=== PATIENT | female | born 1945 | race Caucasian/White ===

== ENCOUNTER 2018-01-13 15:04 | Emergency (ER) | payer OTHER ==
[~2018-01-13] VITALS: Ht 160 cm; Wt 78.7 kg
[~2018-01-13 15:04] MED LIST: CALCIUM 500 W/V1 TAB PO; CLINDAMYCIN HC300 MG PO; CODEINE PO; FLUOXETINE10 M3 PO; FLUOXETINE40 MG PO; LAC PO; LEVAQUIN750 MG PO; LEVOTHYROXIN0.075 M2 PO; OMEPRAZOLE DR20 M1 PO; PREDNISONE20 MG PO; PREDNISONE5 MG PO; PULMICORT180 MCG/Ac INH; SIMVASTATIN20 M1 PO; SYNTHROID0.075 MG PO; TESSALON PERLE100 MG PO; VENTOLIN H0.09 MG/A1 IH; ZITHROMAX Z-PA250 MG PO; ZOCOR20 MG PO; [UNRECOGNIZED DRUG - OTHER] PO; [UNRECOGNIZED DRUG - OTHER] PO
[2018-01-13 15:08] VITALS: Ht 160 cm; Wt 78.7 kg
[2018-01-13 16:14] VITALS: BP 140/71
== END 2018-01-13 16:14 | disposition home or self-care (01) ==
LOC: ED 15:04
DX: S50.12XA Contusion of left forearm, initial encounter (principal); S50.11XA Contusion of right forearm, initial encounter; I10 Essential (primary) hypertension; E78.00 Pure hypercholesterolemia, unspecified; E07.9 Disorder of thyroid, unspecified; M79.644 Pain in right finger(s); W22.8XXA Striking against or struck by other objects, initial encounter; Y93.89 Activity, other specified; Y92.89 Other specified places as the place of occurrence of the external cause; Y99.8 Other external cause status

== ENCOUNTER → 2018-02-03 | Outpatient (CLI) | payer OTHER ==
[2018-02-03 13:10] LABS: BASOPHIL % 0.4 % (0-2); PLATELET COUNT 285 x10^3mcL (130-400)
[2018-02-03 13:11] LABS: RED CELL DISTRIBUTION WIDTH 15.5 % (11.5-14.5)
[2018-02-03 13:13] LABS: CALCIUM 8.6 mg/dL (8.5-10.1); CHLORIDE SERUM 105 mmol/L (98-107); CREATININE SERUM 0.7 mg/dL (0.6-1.0); GLUCOSE SERUM 107 mg/dL (74-106); POTASSIUM SERUM 3.8 mmol/L (3.5-5.1); SODIUM SERUM 142 mmol/L (136-145)
[2018-02-03 13:18] LABS: ALBUMIN 3.6 g/dL (3.4-5.0); ALKALINE PHOSPHATASE 90 U/L (46-116); ALT/SGPT 44 U/L (14-59); AST/SGOT 31 U/L (15-37); BILIRUBIN TOTAL 0.49 mg/dL (0.20-1.00); TOTAL PROTEIN, SERUM 7.2 g/dL (6.4-8.2)
== END | disposition home or self-care (01) ==
LOC: LB 11:45
PROVIDERS: Radiology Diagnostic Radiology
DX: Z01.818 Encounter for other preprocedural examination (principal); K44.9 Diaphragmatic hernia without obstruction or gangrene

== ENCOUNTER 2018-04-30 20:18 | Inpatient (IN) | payer OTHER ==
[~2018-04-30] VITALS: Ht 160 cm; Wt 72.1 kg
[2018-04-30 21:37] LABS: PLATELET COUNT 259 x10^3mcL (130-400); RED CELL DISTRIBUTION WIDTH 14.1 % (11.5-14.5)
[2018-04-30 21:39] LABS: CALCIUM 9.2 mg/dL (8.5-10.1); CARBON DIOXIDE 27.6 mmol/L (21-32); CHLORIDE SERUM 103 mmol/L (98-107); CREATININE SERUM 0.8 mg/dL (0.6-1.0); GLUCOSE SERUM 129 mg/dL (74-106); POTASSIUM SERUM 3.8 mmol/L (3.5-5.1); SODIUM SERUM 141 mmol/L (136-145)
[2018-04-30 21:53] LABS: ALBUMIN 3.8 g/dL (3.4-5.0); ALKALINE PHOSPHATASE 95 U/L (46-116); ALT/SGPT 44 U/L (14-59); AST/SGOT 24 U/L (15-37); BILIRUBIN TOTAL 0.58 mg/dL (0.20-1.00); FREE T4 1.41 ng/dL (0.76-1.46); LIPASE 110 IU/L (73-393); TOTAL PROTEIN, SERUM 7.8 g/dL (6.4-8.2)
[2018-04-30 21:56] LABS: BASOPHIL % 2.6 % (0-2)
[2018-04-30] MEDS ORDERED: LEVOTHYROXIN0.075 M2 PO (23:44)
[2018-04-30] MEDS ORDERED: SIMVASTATIN20 M1 PO (23:45)
[2018-04-30] MEDS ORDERED: FLUOXETINE40 MG PO (23:46)
[2018-04-30] MEDS ORDERED: GOOD NEIGHBOR P20 M2 PO (23:46)
[2018-04-30] MEDS ORDERED: DETROL LA4 MG PO (23:47)
[2018-05-01 01:26] VITALS: BP 164/84
[2018-05-01 06:06] VITALS: BP 173/70
[2018-05-01 06:41] LABS: microscopic required? NO
[2018-05-01 07:45] LABS: urine erythrocyte NEGATIVE (NEGATIVE)
[2018-05-01 08:42] VITALS: BP 190/95
[2018-05-01 11:00] VITALS: BP 143/87
[2018-05-01 16:08] VITALS: BP 191/96
[2018-05-01 21:14] LABS: BASOPHIL % 0.6 % (0-2); PLATELET COUNT 225 x10^3mcL (130-400)
[2018-05-01 21:15] LABS: RED CELL DISTRIBUTION WIDTH 15.6 % (11.5-14.5)
[2018-05-01 22:04] VITALS: BP 184/89
[2018-05-02 09:38] VITALS: BP 149/80
[2018-05-02 14:50] VITALS: BP 157/99
[2018-05-02 17:43] VITALS: BP 131/72
[2018-05-02 21:09] VITALS: BP 141/82
[2018-05-03 05:37] VITALS: BP 128/87
[2018-05-03 07:53] LABS: CALCIUM 8.1 mg/dL (8.5-10.1); CARBON DIOXIDE 24.7 mmol/L (21-32); CHLORIDE SERUM 103 mmol/L (98-107); CREATININE SERUM 0.7 mg/dL (0.6-1.0); GLUCOSE SERUM 132 mg/dL (74-106); POTASSIUM SERUM 3.1 mmol/L (3.5-5.1); SODIUM SERUM 139 mmol/L (136-145)
[2018-05-03 07:58] LABS: BASOPHIL % 0.6 % (0-2); PLATELET COUNT 216 x10^3mcL (130-400)
[2018-05-03 08:02] LABS: RED CELL DISTRIBUTION WIDTH 15.3 % (11.5-14.5)
[2018-05-03 09:26] VITALS: BP 156/82
[2018-05-03 14:02] VITALS: BP 167/88
[2018-05-03 17:55] VITALS: BP 172/80
[2018-05-03 18:53] VITALS: BP 161/82
[2018-05-03 20:32] VITALS: BP 148/79
[2018-05-04 05:21] VITALS: BP 128/65
[2018-05-04 10:03] VITALS: BP 135/76
[2018-05-04 13:20] VITALS: BP 144/86
[2018-05-04 16:29] VITALS: BP 157/86
[2018-05-04 21:06] VITALS: BP 154/77
[2018-05-05 06:25] VITALS: BP 119/45
[2018-05-05 09:20] VITALS: BP 144/86
[2018-05-05 12:54] VITALS: BP 125/72
[2018-05-05 21:26] VITALS: BP 133/64
[2018-05-06 06:05] VITALS: BP 106/62
[2018-05-06 07:24] LABS: BASOPHIL % 0.2 % (0-2); PLATELET COUNT 223 x10^3mcL (130-400)
[2018-05-06 07:27] LABS: CALCIUM 8.4 mg/dL (8.5-10.1); CARBON DIOXIDE 23.8 mmol/L (21-32); CHLORIDE SERUM 108 mmol/L (98-107); CREATININE SERUM 0.7 mg/dL (0.6-1.0); GLUCOSE SERUM 116 mg/dL (74-106); POTASSIUM SERUM 4.2 mmol/L (3.5-5.1); SODIUM SERUM 137 mmol/L (136-145)
[2018-05-06 07:39] LABS: RED CELL DISTRIBUTION WIDTH 15.3 % (11.5-14.5)
[2018-05-06 09:19] VITALS: BP 129/64
[2018-05-06 13:11] VITALS: BP 129/94
[2018-05-06 18:30] VITALS: BP 111/62
[2018-05-06 20:39] VITALS: BP 117/57
[2018-05-07 05:17] VITALS: BP 133/66
[2018-05-07 09:21] VITALS: BP 135/67
[2018-05-07 12:20] VITALS: BP 115/67
[2018-05-07 17:23] VITALS: BP 132/63
[2018-05-07 20:43] VITALS: BP 122/90
[2018-05-08 05:32] VITALS: BP 127/59
[2018-05-08 09:32] VITALS: BP 135/75
[2018-05-08 09:41] VITALS: BP 135/75
[2018-05-08 12:41] VITALS: BP 141/73
== END 2018-05-08 14:20 | disposition home or self-care (01) | DRG 327 ==
LOC: ED 20:18 → DU 05-01 00:06
PROVIDERS: Emergency Medicine; Internal Medicine; Surgery
PROC: 0DQ44ZZ Repair Esophagogastric Junction, Percutaneous Endoscopic Approach (ICD-10-PCS; 2018-05-05)
PROC: 0DJ08ZZ Inspection of Upper Intestinal Tract, Via Natural or Artificial Opening Endoscopic (ICD-10-PCS; principal; 2018-05-05 10:00)
DX: K91.0 Vomiting following gastrointestinal surgery (principal); K44.0 Diaphragmatic hernia with obstruction, without gangrene; E03.9 Hypothyroidism, unspecified; E78.5 Hyperlipidemia, unspecified; I10 Essential (primary) hypertension; Z87.11 Personal history of peptic ulcer disease; Y83.4 Other reconstructive surgery as the cause of abnormal reaction of the patient, or of later complication, without mention of misadventure at the time of the procedure; Y92.009 Unspecified place in unspecified non-institutional (private) residence as the place of occurrence of the external cause
CPT/HCPCS: 43235; 83880; 84439; A9698; J0330; J0690; J1170; J1200; J1610; J2250; J2270; J2310; J2405; J2543; J2550; J2704; J2710; J2765; J3010; J3480; J3490; J7030; J7040; J7042; J7120; Q0092; Q0162; Q9966; Q9967

== ENCOUNTER 2018-06-11 12:04 | Inpatient (IN) | payer OTHER ==
[~2018-06-11] VITALS: Ht 157.5 cm; Wt 67.8 kg
[~2018-06-11 12:04] MED LIST changes: +DETROL LA4 MG PO; +GOOD NEIGHBOR P20 M2 PO
[2018-06-11 14:00] LABS: CALCIUM 9.1 mg/dL (8.5-10.1); CHLORIDE SERUM 105 mmol/L (98-107); CREATININE SERUM 0.7 mg/dL (0.6-1.0); GLUCOSE SERUM 111 mg/dL (74-106); SODIUM SERUM 138 mmol/L (136-145)
[2018-06-11 14:04] LABS: ALKALINE PHOSPHATASE 81 U/L (46-116); ALT/SGPT 26 U/L (14-59); AST/SGOT 18 U/L (15-37); BILIRUBIN TOTAL 0.4 mg/dL (0.20-1.00); LIPASE 71 IU/L (73-393); TOTAL PROTEIN, SERUM 6.9 g/dL (6.4-8.2)
[2018-06-11 14:05] LABS: ALBUMIN 3.2 g/dL (3.4-5.0)
[2018-06-11 14:17] LABS: BASOPHIL % 0.5 % (0-2); PLATELET COUNT 252 x10^3mcL (130-400); RED CELL DISTRIBUTION WIDTH 14.1 % (11.5-14.5)
[2018-06-11 17:37] VITALS: BP 137/81
[2018-06-11 18:01] VITALS: BP 155/77
[2018-06-11 18:06] VITALS: Ht 157.5 cm; Wt 67.8 kg
[2018-06-11 20:57] VITALS: BP 100/61
[2018-06-12] VITALS (9 sets, daily range): BP systolic 109–148; BP diastolic 56–76
[2018-06-13 04:39] VITALS: BP 137/77
[2018-06-13 06:31] LABS: BASOPHIL % 0.6 % (0-2); PLATELET COUNT 225 x10^3mcL (130-400); RED CELL DISTRIBUTION WIDTH 14.1 % (11.5-14.5)
[2018-06-13 06:51] LABS: CALCIUM 8.6 mg/dL (8.5-10.1); CARBON DIOXIDE 26.2 mmol/L (21-32); CHLORIDE SERUM 107 mmol/L (98-107); CREATININE SERUM 0.5 mg/dL (0.6-1.0); GLUCOSE SERUM 88 mg/dL (74-106); SODIUM SERUM 140 mmol/L (136-145)
[2018-06-13 08:30] VITALS: BP 128/71
[2018-06-13 10:53] VITALS: BP 128/71
== END 2018-06-13 11:23 | disposition home or self-care (01) | DRG 193 ==
LOC: ED 12:04 → DU 17:22
PROVIDERS: Emergency Medicine; Internal Medicine
PROC: 0BBG3ZX Excision of Left Upper Lung Lobe, Percutaneous Approach, Diagnostic (ICD-10-PCS; principal; 2018-06-12)
DX: R09.1 Pleurisy (principal); J18.9 Pneumonia, unspecified organism; R91.8 Other nonspecific abnormal finding of lung field; K44.9 Diaphragmatic hernia without obstruction or gangrene; K21.9 Gastro-esophageal reflux disease without esophagitis; F32.9 Major depressive disorder, single episode, unspecified; Z68.27 Body mass index [BMI] 27.0-27.9, adult; Z87.891 Personal history of nicotine dependence
CPT/HCPCS: 32405; 83880; 85378; C1894; J1956; J2001; J7030; J7620; Q0092; Q9967

== ENCOUNTER 2018-06-25 16:47 | Emergency (ER) | payer OTHER ==
[~2018-06-25] VITALS: Ht 160 cm; Wt 68.0 kg
[2018-06-25 17:01] VITALS: BP 130/80; Ht 160 cm; Wt 68.0 kg
[2018-06-26] MEDS ORDERED: LEVOTHYROXIN0.075 M2 PO (09:39)
[2018-06-26] MEDS ORDERED: GOOD SENSE OMEP20 MG PO (09:40)
[2018-06-26] MEDS ORDERED: SIMVASTATIN20 M1 PO (09:40)
[2018-06-26] MEDS ORDERED: FLUOXETINE40 MG PO (09:41)
[2018-06-26] MEDS ORDERED: DETROL LA4 MG PO (09:41)
== END 2018-06-25 18:02 | disposition left against medical advice (07) ==
LOC: ED 16:47
DX: Z53.21 Procedure and treatment not carried out due to patient leaving prior to being seen by health care provider (principal)

== ENCOUNTER 2018-06-26 07:58 | Inpatient (IN) | payer OTHER ==
[~2018-06-26] VITALS: Ht 160 cm; Wt 63.1 kg
[2018-06-26 08:46] LABS: BASOPHIL % 0.5 % (0-2); PLATELET COUNT 249 x10^3mcL (130-400); RED CELL DISTRIBUTION WIDTH 14.1 % (11.5-14.5)
[2018-06-26 08:56] LABS: CALCIUM 8.7 mg/dL (8.5-10.1); CARBON DIOXIDE 26.1 mmol/L (21-32); CHLORIDE SERUM 103 mmol/L (98-107); CREATININE SERUM 0.6 mg/dL (0.6-1.0); GLUCOSE SERUM 111 mg/dL (74-106); POTASSIUM SERUM 3.6 mmol/L (3.5-5.1); SODIUM SERUM 139 mmol/L (136-145)
[2018-06-26 09:01] LABS: ALKALINE PHOSPHATASE 77 U/L (46-116); ALT/SGPT 21 U/L (14-59); AST/SGOT 15 U/L (15-37); BILIRUBIN TOTAL 0.4 mg/dL (0.20-1.00); CHOLESTEROL 149 mg/dL (<200); CHOLESTEROL/HDL RATIO 3.3; HDL CHOLESTEROL 45 mg/dL (40-60); LIPASE 53 IU/L (73-393); TOTAL PROTEIN, SERUM 6.7 g/dL (6.4-8.2); TRIGLYCERIDES 103 mg/dL (<150)
[2018-06-26 09:10] LABS: ALBUMIN 3.1 g/dL (3.4-5.0)
[2018-06-26 09:12] LABS: FREE T4 1.32 ng/dL (0.76-1.46); FREE THYROXINE INDEX 3.6 ug/dL (1.4-4.5); T4(THYROXINE) 10.7 ug/dL (4.7-13.3)
[2018-06-26] MEDS ORDERED: LEVOTHYROXIN0.075 M2 PO (09:39)
[2018-06-26] MEDS ORDERED: SIMVASTATIN20 M1 PO (09:40)
[2018-06-26] MEDS ORDERED: GOOD SENSE OMEP20 MG PO (09:40)
[2018-06-26] MEDS ORDERED: FLUOXETINE40 MG PO (09:41)
[2018-06-26] MEDS ORDERED: DETROL LA4 MG PO (09:41)
[2018-06-26 09:44] LABS: T3 TOTAL 0.95 ng/mL
[2018-06-26 10:57] VITALS: BP 140/72
[2018-06-26 15:00] VITALS: BP 140/72
[2018-06-26 15:48] LABS: UA SPECIFIC GRAVITY 1.025 (1.005-1.035); microscopic required? YES; urine erythrocyte NEGATIVE (NEGATIVE)
[2018-06-26 15:55] LABS: AMPHETAMINE QUAL UR NONE DETECTED (See below)
[2018-06-26 17:30] VITALS: BP 142/80
[2018-06-26 20:55] VITALS: BP 153/59
[2018-06-27 05:42] VITALS: BP 133/65
[2018-06-27 07:13] LABS: BASOPHIL % 0.3 % (0-2); PLATELET COUNT 230 x10^3mcL (130-400)
[2018-06-27 08:35] LABS: POTASSIUM SERUM 3.7 mmol/L (3.5-5.1)
[2018-06-27 08:48] LABS: CALCIUM 8.9 mg/dL (8.5-10.1); CARBON DIOXIDE 23.7 mmol/L (21-32); CREATININE SERUM 0.6 mg/dL (0.6-1.0); GLUCOSE SERUM 109 mg/dL (74-106)
[2018-06-27 08:58] LABS: CHLORIDE SERUM 106 mmol/L (98-107)
[2018-06-27 09:05] LABS: SODIUM SERUM 148 mmol/L (136-145)
[2018-06-27 09:53] VITALS: BP 123/84
[2018-06-27 18:10] VITALS: BP 144/52
[2018-06-27 20:40] VITALS: BP 146/69
[2018-06-28 05:26] VITALS: BP 142/67
[2018-06-28 06:03] LABS: PLATELET COUNT 243 x10^3mcL (130-400); RED CELL DISTRIBUTION WIDTH 14.4 % (11.5-14.5)
[2018-06-28 06:05] LABS: BASOPHIL % 0 % (0-2)
[2018-06-28 06:20] LABS: CARBON DIOXIDE 22.8 mmol/L (21-32); CHLORIDE SERUM 102 mmol/L (98-107); CREATININE SERUM 0.7 mg/dL (0.6-1.0); GLUCOSE SERUM 152 mg/dL (74-106); POTASSIUM SERUM 3.7 mmol/L (3.5-5.1); SODIUM SERUM 138 mmol/L (136-145)
[2018-06-28 08:30] VITALS: BP 110/59
[2018-06-28 17:21] VITALS: BP 126/69
[2018-06-28 20:47] VITALS: BP 145/69
[2018-06-29 05:39] VITALS: BP 157/68
[2018-06-29 06:13] LABS: PLATELET COUNT 266 x10^3mcL (130-400); RED CELL DISTRIBUTION WIDTH 14.4 % (11.5-14.5)
[2018-06-29 06:27] LABS: CALCIUM 8.8 mg/dL (8.5-10.1); CARBON DIOXIDE 25.2 mmol/L (21-32); CHLORIDE SERUM 104 mmol/L (98-107); CREATININE SERUM 0.7 mg/dL (0.6-1.0); GLUCOSE SERUM 145 mg/dL (74-106); SODIUM SERUM 139 mmol/L (136-145)
[2018-06-29 07:04] LABS: BASOPHIL % 0 % (0-2)
[2018-06-29 09:03] VITALS: BP 140/70
[2018-06-29] MEDS ORDERED: AUG500 PO (11:50)
[2018-06-29] MEDS ORDERED: PREDNISONE20 MG PO (11:52)
[2018-06-29 13:10] VITALS: BP 140/70
[2018-06-29 19:25] VITALS: Ht 160 cm; Wt 63.1 kg
== END 2018-06-29 19:50 | disposition home or self-care (01) | DRG 177 ==
LOC: ED 07:58 → MU 09:23
PROVIDERS: Internal Medicine; Specialist
DX: J69.0 Pneumonitis due to inhalation of food and vomit (principal); N17.0 Acute kidney failure with tubular necrosis; J96.20 Acute and chronic respiratory failure, unspecified whether with hypoxia or hypercapnia; J44.1 Chronic obstructive pulmonary disease with (acute) exacerbation; E44.0 Moderate protein-calorie malnutrition; R91.8 Other nonspecific abnormal finding of lung field; I10 Essential (primary) hypertension; N32.81 Overactive bladder; R73.03 Prediabetes; E78.5 Hyperlipidemia, unspecified; F32.9 Major depressive disorder, single episode, unspecified; E03.9 Hypothyroidism, unspecified; E78.00 Pure hypercholesterolemia, unspecified; Z68.25 Body mass index [BMI] 25.0-25.9, adult; Z87.891 Personal history of nicotine dependence
CPT/HCPCS: 83880; 84439; 90658; 90732; 94150; J1644; J1956; J2543; J2920; J2930; J7050; J7613; J7620; J7626; J7644; Q0092